=== PATIENT | female | born 1965 | race American Indian/Alaskan Native ===

== ENCOUNTER 2016-11-30 11:35 | Emergency (ER) | payer SELFPAY ==
[2016-11-30 12:22] LABS: Hematocrit 34.1 % (30.3-42.9); Hemoglobin 10.4 gm/dl (10.1-14.3); Mean Corpuscular HGB Conc 31 % (30-34); Mean Corpuscular Volume 73 fl (79-97); Platelet Count 280 K/mm3 (140-440); Red Blood Count 4.67 M/mm3 (3.65-5.03); Red Cell Distribution Width 17.1 % (13.2-15.2); White Blood Count 5.7 K/mm3 (4.5-11.0)
[2016-11-30 12:29] LABS: Mean Corpuscular Hemoglobin 22 pg (28-32)
[2016-11-30 12:54] LABS: Bilirubin,Urine NEG (Negative); Blood,Urine MOD (Negative); Ketones,Urine NEG (Negative); Leukocyte Esterase,Urine NEG (Negative); Nitrite,Urine NEG (Negative); Protein,Urine <15 mg/dL mg/dL (Negative); Urobilinogen,Urine < 2.0 mg/dL (<2.0)
[2016-11-30 15:17] LABS: Anion Gap 18 mmol/L; BUN/Creatinine Ratio 21.66; Blood Urea Nitrogen 13 mg/dL (7-17); Calcium 8.5 mg/dL (8.4-10.2); Carbon Dioxide 19 mmol/L (22-30); Glucose 121 mg/dL (65-100); Potassium 3.4 mmol/L (3.6-5.0); Sodium 133 mmol/L (137-145)
[2016-11-30] MEDS ORDERED: TORADOL IV ONE (18:27)
[2016-11-30] MEDS ORDERED: CATAPRES PO ONE (18:27)
[2016-11-30] MEDS ORDERED: NACL 0.9% 1000 ML 1,000 ML IV ONE (18:27)
[2016-11-30] MEDS ORDERED: K-DUR PO ONE (18:27)
--- NOTE | 2016-11-30 19:28 | Cat Scan Report ---
FINAL REPORT EXAM: CT HEAD/BRAIN WO CON HISTORY: right sided oakes TECHNIQUE: CT imaging acquired through the head without intravenous contrast. Transaxial reformations are provided. PRIORS: None. FINDINGS: The ventricles, cisterns and sulci are normal. No intraparenchymal or extra-axial mass, hemorrhage, or mass effect. Baker and white-matter differentiation is normal. Normal spherical shape of the globes. Paranasal sinuses and mastoid air cells are clear. No skull or facial fracture visualized. IMPRESSION: No acute intracranial abnormality.
--- NOTE | 2016-11-30 19:38 | Emergency Department Report ---
ED General Adult HPI - General Chief complaint: Vaginal Bleeding Stated complaint: HEADACHE/VAGINAL BLEEDING Time Seen by Provider: 11/30/16 18:12 Source: patient Mode of arrival: Ambulatory Limitations: No Limitations - History of Present Illness Initial comments: 51-year-old female with a past medical history of hypertension, rheumatoid arthritis , and Raynauds presents to the hospital complains of vaginal bleeding and headache. Patient has had postmenopausal vaginal spotting times one week. Patient complains of bloating to her abdomen and decreased bowel movements. She did have a small hard stool today but did not have a bowel movement 2-3 days prior to that. She also complains of feeling full easily with eating. She denies pain to abdomen. Patient does complain of 8/10 right-sided headache that has been constant the last several days. Some mild improvement with Tylenol. Patient does have a history of migraines but states that her migraines typically involve her whole head, including neck pain, and are more severe. Patient denies nausea, vomiting, blurred vision, focal weakness, focal numbness, lightheadedness, or dizziness. Patient presents with elevated blood pressure despite being compliant with her carvedilol and lisinopril. PMD: Dr. Auguste - Related Data Home Medications Medication Instructions Recorded Confirmed Last Taken Carvedilol [Coreg] 25 mg PO BID 11/30/16 11/30/16 11/30/16 Edoxaban Tosylate [Savaysa] 60 mg PO QDAY 11/30/16 11/30/16 11/30/16 Furosemide [Lasix TAB] 40 mg PO QDAY 11/30/16 11/30/16 11/30/16 Hydroxychloroquine [Plaquenil] 200 mg PO QDAY 11/30/16 11/30/16 11/30/16 Lisinopril [Zestril] 5 mg PO QDAY 11/30/16 11/30/16 11/30/16 NIFEdipine [Nifedipine ER] 60 mg PO QDAY 11/30/16 11/30/16 11/30/16 Prednisone [predniSONE (Larry) ER 5 mg PO BID 11/30/16 11/30/16 11/30/16 TAB] sulfaSALAzine [Azulfidine] 500 mg PO Q12HR 11/30/16 11/30/16 11/30/16 Previous Rx's Medication Instructions Recorded Last Taken Type Butalb/Acetaminophen/Caffeine 1 cap PO Q6HR PRN #30 cap 11/30/16 Unknown Rx [Fioricet 50-300-40 mg CAP] Lisinopril [Zestril TAB] 20 mg PO QDAY #30 tablet 11/30/16 Unknown Rx Allergies Allergy/AdvReac Type Severity Reaction Status Date / Time No Known Allergies Allergy Verified 04/13/15 10:01 ED Review of Systems ROS: Stated complaint: HEADACHE/VAGINAL BLEEDING Other details as noted in HPI Comment: All other systems reviewed and negative Other: Constitutional: No fevers chills Eyes: No eye pain visual changes ENT: No ear pain or throat pain Neck: Denies pain Respiratory: Denies cough wheezing shortness of breath Cardiovascular: Denies chest pain, palpitations, syncope Endocrine: Denies excessive sweating, intolerance to cold, increased thirst GI: Denies abdominal pain, nausea, vomiting, diarrhea, constipation, melena hematochezia : Denies dysuria Musculoskeletal: Denies back pain Skin: Denies rash, lesions, erythema Neurologic: Denies numbness, weakness Psychiatric: Denies suicidal ideation, hallucinations Hematological/lymphatic: Denies easy bruising, lymphadenopathy ED Past Medical Hx - Past Medical History Hx Hypertension: Yes Hx Arthritis: Yes (RA) Additional medical history: varicose veins, Raynauds - Surgical History Additional Surgical History: tubal litigation - Social History Smoking Status: Never Smoker Substance Use Type: Alcohol - Medications Home Medications: Home Medications Medication Instructions Recorded Confirmed Last Taken Type Butalb/Acetaminophen/Caffeine 1 cap PO Q6HR PRN #30 cap 11/30/16 Unknown Rx [Fioricet 50-300-40 mg CAP] Carvedilol [Coreg] 25 mg PO BID 11/30/16 11/30/16 11/30/16 History Edoxaban Tosylate [Savaysa] 60 mg PO QDAY 11/30/16 11/30/16 11/30/16 History Furosemide [Lasix TAB] 40 mg PO QDAY 11/30/16 11/30/16 11/30/16 History Hydroxychloroquine [Plaquenil] 200 mg PO QDAY 11/30/16 11/30/16 11/30/16 History Lisinopril [Zestril TAB] 20 mg PO QDAY #30 tablet 11/30/16 Unknown Rx Lisinopril [Zestril] 5 mg PO QDAY 11/30/16 11/30/16 11/30/16 History NIFEdipine [Nifedipine ER] 60 mg PO QDAY 11/30/16 11/30/16 11/30/16 History Prednisone [predniSONE (Larry) ER 5 mg PO BID 11/30/16 11/30/16 11/30/16 History TAB] sulfaSALAzine [Azulfidine] 500 mg PO Q12HR 11/30/16 11/30/16 11/30/16 History ED Physical Exam - General Limitations: No Limitations - Other Other exam information: General: No limitations, patient is alert in no acute distress Head exam: Atraumatic, normocephalic Eyes exam: Normal appearance, pupils equal reactive to light, extraocular movements intact ENT: Moist mucous membrane, normal oropharynx and no sinus tenderness Neck exam: Normal inspection, full range of motion, no meningismus nontender Respiratory exam: Clear to auscultation bilateral, no wheezes, rales, crackles Cardiovascular: Normal rate and rhythm, normal heart sounds Abdomen: Soft, nondistended, and nontender, with normal bowel sounds, no rebound, or guarding : Scant blood in vaginal vault no CMT or adnexal tenderness Extremity: Full range of motion normal inspection no deformity Back: Normal Inspection, full range of motion, no tenderness Neurologic: Alert, oriented x3, cranial nerves intact, no motor or sensory deficit Psychiatric: normal affect, normal mood Skin: Warm, dry, intact ED Course Vital Signs 11/30/16 11/30/16 11/30/16 11:45 18:05 18:11 Temperature 97.7 F Pulse Rate 74 66 Respiratory 20 22 Rate Blood Pressure 181/102 204/105 Blood Pressure [Left] O2 Sat by Pulse 100 67 L Oximetry 11/30/16 11/30/16 11/30/16 18:16 18:21 18:31 Temperature Pulse Rate 68 75 Respiratory 18 22 10 L Rate Blood Pressure 200/106 194/98 Blood Pressure [Left] O2 Sat by Pulse 98 Oximetry 11/30/16 11/30/16 11/30/16 18:41 18:51 19:15 Temperature 97.4 F L Pulse Rate 75 72 Respiratory 21 21 Rate Blood Pressure 194/98 194/98 Blood Pressure [Left] O2 Sat by Pulse Oximetry 11/30/16 11/30/16 11/30/16 19:55 20:00 20:01 Temperature Pulse Rate 61 Respiratory Rate Blood Pressure 208/100 206/104 Blood Pressure [Left] O2 Sat by Pulse 82 L 19 L Oximetry 11/30/16 11/30/16 11/30/16 21:00 21:40 22:08 Temperature Pulse Rate 66 75 Respiratory Rate Blood Pressure 204/108 198/107 Blood Pressure 197/93 [Left] O2 Sat by Pulse Oximetry 11/30/16 11/30/16 22:11 22:35 Temperature Pulse Rate 75 72 Respiratory Rate Blood Pressure 197/93 Blood Pressure 157/85 [Left] O2 Sat by Pulse Oximetry - Reevaluation(s) Reevaluation #1: 11/30/16 22:35 ED stay pain improved with toward all. Patient required clonidine 0.2 followed by hydralazine 10 mg IV, then repeat hydralazine 10 for adequate blood pressure reduction which is currently 157/85. ED Medical Decision Making - Lab Data Result diagrams: 11/30/16 12:03 11/30/16 12:03 Lab Results 11/30/16 11/30/16 11/30/16 Range/Units 12:03 12:03 12:23 WBC 5.7 (4.5-11.0) K/mm3 RBC 4.67 (3.65-5.03) M/mm3 Hgb 10.4 (10.1-14.3) gm/dl Hct 34.1 (30.3-42.9) % MCV 73 L (79-97) fl MCH 22 L (28-32) pg MCHC 31 (30-34) % RDW 17.1 H (13.2-15.2) % Plt Count 280 (140-440) K/mm3 Sodium 133 L (137-145) mmol/L Potassium 3.4 L (3.6-5.0) mmol/L Chloride 99.0 (98-107) mmol/L Carbon Dioxide 19 L (22-30) mmol/L Anion Gap 18 mmol/L BUN 13 (7-17) mg/dL Creatinine 0.6 L (0.7-1.2) mg/dL Estimated GFR > 60 ml/min BUN/Creatinine Ratio 21.66 % Glucose 121 H (65-100) mg/dL Calcium 8.5 (8.4-10.2) mg/dL Urine Color Yellow (Yellow) Urine Turbidity Clear (Clear) Urine pH 6.0 (5.0-7.0) Ur Specific [place] 1.013 (1.003-1.030) Urine Protein <15 mg/dl (Negative) mg/dL Urine Glucose (UA) Neg (Negative) mg/dL Urine Ketones Neg (Negative) mg/dL Urine Blood Mod (Negative) Urine Nitrite Neg (Negative) Urine Bilirubin Neg (Negative) Urine Urobilinogen < 2.0 (<2.0) mg/dL Ur Leukocyte Esterase Neg (Negative) Urine WBC (Auto) 1.0 (0.0-6.0) /HPF Urine RBC (Auto) 4.0 (0.0-6.0) /HPF U Epithel Cells (Auto) 1.0 (0-13.0) /HPF Positive clue cells on wet prep >20, neg trich, yeast GC chlamydia pending - Radiology Data Radiology results: report reviewed (ct head: naf) Transvaginal/pelvic ultrasound: Endometrium 8 mm thick. 2 uterine fibroids approximately 15 mm - Medical Decision Making Patient received by mouth potassium for mild hypokalemia. Patient also has mild hyponatremia as well. Patient presents with elevated blood pressure despite medication compliance was could be either due to inadequate medication dosing or acute pain secondary to headache. Patient is currently on lisinopril 5 mg and carvedilol. Lisinopril will be increased to 20 mg daily. Patient instructed to monitor her blood pressure at home and follow-up very closely with primary care doctor for repeat electrolytes evaluation. - Differential Diagnosis migraine, hypertensive headache, hypertensive emergency, CA, postmenopausa Critical Care Time: No Critical care attestation.: If time is entered above; I have spent that time in minutes in the direct care of this critically ill patient, excluding procedure time. ED Disposition Clinical Impression: Uncontrolled hypertension, Postmenopausal bleeding, Uterine fibroid, Headache, Hypokalemia, Hyponatremia Disposition: DISCHARGED TO HOME OR SELFCARE Is pt being admited?: No Condition: Stable Instructions: Hypertension (ED), Acute Headache (ED), Hypokalemia (ED) Additional Instructions: Take the medication as prescribed. I have increased her or lisinopril to 20 mg once a day given how high her blood pressure was in the ER. Continue to monitor your blood pressure at home. Follow up very closely with your doctor within 2-3 days for repeat evaluation. Both your sodium and potassium also slightly low in the ER and both were supplemented. Take the Fioricet as needed for headache. It is very important that you follow with your [facility] doctor for further workup and evaluation of postmenopausal bleeding. Please return to the hospita if you are bleeding and using more than 1 vaginal pad per hour. Prescriptions: Butalb/Acetaminophen/Caffeine [Fioricet 50-300-40 mg CAP] 1 cap PO Q6HR PRN #30 cap PRN Reason: Headache Lisinopril [Zestril TAB] 20 mg PO QDAY #30 tablet Referrals: NINA AUGUSTE MD [Primary Care Provider] - 3-5 Days Time of Disposition: 22:43
--- NOTE | 2016-11-30 20:17 | Ultrasound Report ---
FINAL REPORT EXAM: US PELVIC COMPLETE HISTORY: post menopausal vag spotting COMPARISONS: None. FINDINGS: Transabdominal grayscale and color Doppler ultrasound evaluation of the pelvis Anteverted uterus is overall heterogeneous with 2 likely transmural fibroids measuring up to 11 millimeters, which are better demonstrated on transvaginal examination. The endometrium is not well visualized on transabdominal scanning. Left ovary is not visualized. The right ovary measures 4.3 x 3.4 x 2.9 cm and contains a 2.9 cm anechoic simple cyst. IMPRESSION: The endometrium is not well visualized on transabdominal scanning. Please see transvaginal ultrasound of the same date.
--- NOTE | 2016-11-30 20:19 | Ultrasound Report ---
FINAL REPORT EXAM: US TRANSVAGINAL HISTORY: post menopausal vag spotting COMPARISONS: None. FINDINGS: Transvaginal grayscale and color Doppler ultrasound evaluation of the pelvis The uterus is anteverted and measures 7.9 x 4.4 x 5.1 cm. Mild heterogeneity of the uterine myometrium with likely 2 transmural fibroids measuring up to 15 millimeters in greatest dimension. No endometrial distortion. The endometrium is mildly heterogeneously thickened measuring up to approximately 8 millimeters. Trace free fluid in the pelvis. The left ovary is not well visualized. The right ovary measures 4.3 x 3.4 x 2.9 cm and contains a 2.9 centimeter simple appearing cyst. IMPRESSION: Endometrium measures up to 8 millimeters in thickness. Consider sonographic follow-up and/or tissue sampling in the setting of reported postmenopausal vaginal bleeding. There are two likely transmural fibroids measuring up to 15 millimeters. No endometrial distortion.
[2016-11-30] MEDS ORDERED: APRESOLINE IV ONE ×2 (21:21→22:10)
[2016-11-30 22:36] VITALS: BP 157/85
== END 2016-12-01 00:01 | disposition home or self-care (01) ==
LOC: ED 11:35
DX: I10 Essential (primary) hypertension (principal); N95.0 Postmenopausal bleeding; D25.9 Leiomyoma of uterus, unspecified; R51 Headache; E87.6 Hypokalemia; E87.1 Hypo-osmolality and hyponatremia; M19.90 Unspecified osteoarthritis, unspecified site; Z98.51 Tubal ligation status
CPT/HCPCS: 36415; 70450; 76830; 76856; 80048; 81001; 85027; 87210; 87591; 96361; 96374; 96375; 96376; 99285; J0360; J1885; J7030

== ENCOUNTER 2020-12-03 21:30 | Observation (INO) | payer MEDICARE, OTHER ==
[2020-12-03] MEDS ORDERED: ASPIRIN 81 MG TAB CHEW PO ONE (21:43)
--- NOTE | 2020-12-03 21:45 | Event Note ---
ED Screening Note Date of service: 12/03/20 Time: 21:44 ED Screening Note: 55-year-old female patient with history of congestive heart failure, hypertension, and rheumatoid arthritis presents to the emergency department with complaints of chest pain with associated dyspnea starting approximately 2 hours ago. Pain is not related to exertion. Vital signs stable in triage. General: Awake, appropriately interactive, no acute distress. Neck: Supple. Full range of motion intact. Cardiovascular: Regular rate and rhythm. Normal peripheral perfusion. No pretibial pitting edema. Pulmonary: Clear to auscultation bilaterally. No respiratory distress. Patient is speaking normally without use of accessory muscles. Skin: No apparent rashes or lesions. Neurological: No facial asymmetry. Speech is clear. Follows commands. Patient is alert and oriented. Musculoskeletal: Moves all four extremities spontaneously with normal range of motion. Psych: Cooperative. Appropriate mood and affect. I have greeted and performed a focused rapid initial assessment of this patient. A comprehensive ED assessment and evaluation of the patient, analysis of all test results, and completion of the medical decision-making process will be conducted by additional ED providers. This initial assessment/diagnostic orders/clinical plan/treatment(s) is/are subject to change based on patients health status, clinical progression and re-assessment. Further treatment and workup at subsequent clinical provider's discretion. Patient/guardian urged not to elope from the ED as their condition may be serious if not clinically assessed and managed.
[2020-12-03 22:16] LABS: Basophils % (Auto) 0.6 % (0.0-1.8); Eosinophils # (Auto) 0.1 K/mm3 (0.0-0.4); Eosinophils % (Auto) 0.9 % (0.0-4.3); Hematocrit 35.2 % (30.3-42.9); Hemoglobin 10.7 gm/dl (10.1-14.3); Lymphocytes # (Auto) 1.5 K/mm3 (1.2-5.4); Lymphocytes % (Auto) 25.9 % (13.4-35.0); Mean Corpuscular HGB Conc 31 % (30-34); Monocytes # (Auto) 0.9 K/mm3 (0.0-0.8); Monocytes % (Auto) 15.9 % (0.0-7.3); Platelet Count 266 K/mm3 (140-440); Red Blood Count 5.18 M/mm3 (3.65-5.03); Red Cell Distribution Width 16.7 % (13.2-15.2)
[2020-12-03 22:24] LABS: Mean Corpuscular Volume 68 fl (79-97)
[2020-12-03 22:26] LABS: INR 1.97 (0.87-1.13)
[2020-12-03 22:27] LABS: Partial Thromboplastin Time 35.8 Sec. (24.2-36.6)
[2020-12-03 22:33] LABS: Alanine Aminotransferase 14 units/L (7-56); Albumin 3.8 g/dL (3.9-5); BUN/Creatinine Ratio 23; Blood Urea Nitrogen 18 mg/dL (7-17); Calcium 9.2 mg/dL (8.4-10.2); Hemolysis Index 19
[2020-12-03 22:50] LABS: Chol/HDL Ratio 3.68 %; HDL Cholesterol 45 mg/dL (40-59); LDL Cholesterol,Direct 108 mg/dL (50-130)
[2020-12-03] MEDS ORDERED: MORPHINE 4 MG/1 ML INJ IV ONE (23:03)
--- NOTE | 2020-12-03 23:03 | Emergency Department Report ---
ED Chest Pain HPI - General Chief Complaint: Chest Pain Stated Complaint: CHEST PAIN Time Seen by Provider: 12/03/20 22:44 Source: patient Mode of arrival: Ambulatory Limitations: No Limitations - History of Present Illness Initial Comments: This is a 55-year-old -[place] female who presents to the emergency department with a complaint of some midsternal to left-sided chest pain that started about 1.5 hours prior to presentation while the patient was sitting watching television. Currently she says the pain is a 6 out of 10 in intensity and feels like a tightness. There is some radiation down the left arm. The pain worsens with exertion and improves with rest. She has not taken anything for symptoms prior to presentation. She denies any tobacco or illicit drug use. She has a past medical history of rheumatoid arthritis, CHF, hypertension, Raynaud's, paroxysmal atrial fibrillation on anticoagulation (xarelto). Her primary care physician is a Dr. 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 No recent travel or sick contacts at home. She denies any fever, shortness of breath, nausea, vomiting, diaphoresis, cough, back pain, lower extremity swelling. - Related Data Home Medications Medication Instructions Recorded Confirmed Last Taken Edoxaban Tosylate [Savaysa] 60 mg PO QDAY 11/30/16 11/30/16 11/30/16 Furosemide [Lasix TAB] 40 mg PO QDAY 11/30/16 11/30/16 11/30/16 Hydroxychloroquine [Plaquenil] 200 mg PO QDAY 11/30/16 11/30/16 11/30/16 NIFEdipine [Nifedipine ER] 60 mg PO QDAY 11/30/16 11/30/16 11/30/16 Prednisone [predniSONE (Larry) ER 5 mg PO BID 11/30/16 11/30/16 11/30/16 TAB] carvediloL [Coreg] 25 mg PO BID 11/30/16 11/30/16 11/30/16 lisinopriL [Zestril] 5 mg PO QDAY 11/30/16 11/30/16 11/30/16 sulfaSALAzine [Azulfidine] 500 mg PO Q12HR 11/30/16 11/30/16 11/30/16 Previous Rx's Medication Instructions Recorded Last Taken Type Butalb/Acetaminophen/Caffeine 1 cap PO Q6HR PRN #30 cap 11/30/16 Unknown Rx [Fioricet 50-300-40 mg CAP] lisinopriL [Zestril TAB] 20 mg PO QDAY #30 tablet 11/30/16 Unknown Rx metroNIDAZOLE [Flagyl] 500 mg PO Q12HR #14 tab 11/30/16 Unknown Rx Allergies Allergy/AdvReac Type Severity Reaction Status Date / Time No Known Allergies Allergy Verified 04/13/15 10:01 Heart Score - HEART Score History: Moderately suspicious EKG: Normal Age: 45-65 Risk factors: 1-2 risk factors Troponin: > 3x normal limit HEART Score: 5 - EKG Read Time Time EKG Completed: 21:49 EKG Read Time: 21:52 ED Review of Systems ROS: Stated complaint: CHEST PAIN Other details as noted in HPI ED Past Medical Hx - Past Medical History Previous Medical History?: Yes Hx Hypertension: Yes Hx Congestive Heart Failure: Yes Hx Arthritis: Yes (RA) Additional medical history: varicose veins, Raynauds - Surgical History Past Surgical History?: Yes Additional Surgical History: tubal litigation - Social History Smoking Status: Never Smoker - Medications Home Medications: Home Medications Medication Instructions Recorded Confirmed Last Taken Type Butalb/Acetaminophen/Caffeine 1 cap PO Q6HR PRN #30 cap 11/30/16 Unknown Rx [Fioricet 50-300-40 mg CAP] Edoxaban Tosylate [Savaysa] 60 mg PO QDAY 11/30/16 11/30/16 11/30/16 History Furosemide [Lasix TAB] 40 mg PO QDAY 11/30/16 11/30/16 11/30/16 History Hydroxychloroquine [Plaquenil] 200 mg PO QDAY 11/30/16 11/30/16 11/30/16 History NIFEdipine [Nifedipine ER] 60 mg PO QDAY 11/30/16 11/30/16 11/30/16 History Prednisone [predniSONE (Larry) ER 5 mg PO BID 11/30/16 11/30/16 11/30/16 History TAB] carvediloL [Coreg] 25 mg PO BID 11/30/16 11/30/16 11/30/16 History lisinopriL [Zestril TAB] 20 mg PO QDAY #30 tablet 11/30/16 Unknown Rx lisinopriL [Zestril] 5 mg PO QDAY 11/30/16 11/30/16 11/30/16 History metroNIDAZOLE [Flagyl] 500 mg PO Q12HR #14 tab 11/30/16 Unknown Rx sulfaSALAzine [Azulfidine] 500 mg PO Q12HR 11/30/16 11/30/16 11/30/16 History ED Physical Exam - General Limitations: No Limitations - Other Other exam information: GENERAL: The patient is well-developed well-nourished. HENT: Normocephalic. Atraumatic. Patient has moist mucous membranes. EYES: Extraocular motions are intact. NECK: Supple. Trachea is midline. CHEST/LUNGS: Clear to auscultation. There is no respiratory distress noted. HEART/CARDIOVASCULAR: Regular. There is no tachycardia. There is no murmur. ABDOMEN: Abdomen is soft, nontender. Patient has normal bowel sounds. SKIN: Skin is warm and dry. NEURO: The patient is awake, alert, and oriented. The patient is cooperative. The patient has no focal neurologic deficits. Normal speech. MUSCULOSKELETAL: There is no tenderness or deformity. There is no limitation range of motion. ED Course Vital Signs 12/03/20 12/03/20 12/03/20 21:45 21:51 23:16 Temperature 98.7 F Pulse Rate 75 73 Respiratory 20 14 Rate Blood Pressure 142/93 158/75 O2 Sat by Pulse 98 Oximetry CYNTHIA score - Cynthia Score Age > 65: (0) No Aspirin use within the Past 7 Days: (0) No 3 or more CAD Risk Factors: (0) No 2 or more Angina events in past 24 hrs: (1) Yes Known CAD with more than 50% Stenosis: (0) No Elevated Cardiac Markers: (1) Yes ST Deviation Greater than 0.5mm: (0) No CYNTHIA Score: 2 ED Medical Decision Making - Lab Data Result diagrams: 12/03/20 21:51 12/03/20 21:51 Lab Results 12/03/20 12/03/20 12/03/20 Range/Units 21:51 21:51 21:51 WBC 5.9 (4.5-11.0) K/mm3 RBC 5.18 H (3.65-5.03) M/mm3 Hgb 10.7 (10.1-14.3) gm/dl Hct 35.2 (30.3-42.9) % MCV 68 L (79-97) fl MCH 21 L (28-32) pg MCHC 31 (30-34) % RDW 16.7 H (13.2-15.2) % Plt Count 266 (140-440) K/mm3 Lymph % (Auto) 25.9 (13.4-35.0) % [place] % (Auto) 15.9 H (0.0-7.3) % Eos % (Auto) 0.9 (0.0-4.3) % Baso % (Auto) 0.6 (0.0-1.8) % Lymph # (Auto) 1.5 (1.2-5.4) K/mm3 [place] # (Auto) 0.9 H (0.0-0.8) K/mm3 Eos # (Auto) 0.1 (0.0-0.4) K/mm3 Baso # (Auto) 0.0 (0.0-0.1) K/mm3 Seg Neutrophils % 56.7 (40.0-70.0) % Seg Neutrophils # 3.4 (1.8-7.7) K/mm3 PT 22.4 H (12.2-14.9) Sec. INR 1.97 H (0.87-1.13) APTT 35.8 (24.2-36.6) Sec. Sodium 133 L (137-145) mmol/L Potassium 3.9 (3.6-5.0) mmol/L Chloride 95.8 L (98-107) mmol/L Carbon Dioxide 25 (22-30) mmol/L Anion Gap 16 mmol/L BUN 18 H (7-17) mg/dL Creatinine 0.8 (0.6-1.2) mg/dL Estimated GFR > 60 ml/min BUN/Creatinine Ratio 23 % Glucose 88 (65-100) mg/dL Calcium 9.2 (8.4-10.2) mg/dL Magnesium 2.00 (1.7-2.3) mg/dL Total Bilirubin 0.30 (0.1-1.2) mg/dL AST 41 H (5-40) units/L ALT 14 (7-56) units/L Alkaline Phosphatase 68 (35-129) units/L Troponin T 0.105 H* (0.00-0.029) ng/mL NT-Pro-B Natriuret Pep 398.7 (0-900) pg/mL Total Protein 10.1 H (6.3-8.2) g/dL Albumin 3.8 L (3.9-5) g/dL Albumin/Globulin Ratio 0.6 % Triglycerides 102 (2-149) mg/dL Cholesterol 166 (50-199) mg/dL LDL Cholesterol Direct 108 (50-130) mg/dL HDL Cholesterol 45 (40-59) mg/dL Cholesterol/HDL Ratio 3.68 % - EKG Data -: EKG Interpreted by Me EKG shows normal: sinus rhythm, axis, intervals, QRS complexes (Q waves to the septal leads, LVH), ST-T waves Rate: normal - EKG Data When compared to previous EKG there are: no significant change Interpretation: unchanged when compared t (04/26/15) - Radiology Data Radiology results: image reviewed interpreted by me: Chest x-ray shows cardiomegaly. There is no pleural effusions, pneumothorax, obvious pneumonia. - Medical Decision Making This patient presents with midsternal to left-sided acute chest pain that started about 1.5 hours prior to presentation. EKG does not have any morphology consistent with ST elevation myocardial infarction. Chest x-ray shows cardiomegaly, but otherwise no pneumonia, pleural effusions, pneumothorax, or any other acute process. The patient's first troponin came back elevated at 0.105 concerning for an NSTEMI. She has been given a full dose aspirin. Her INR is currently about 2 and therefore the patient has not been started on heparin. She deferred IV analgesia at this time. She will be admitted to the hospital for further evaluation and treatment was accepted for admission by the hospitalist, Dr. Sandhu. Critical Care Time: Yes Critical care time in (mins) excluding proc time.: 35 Critical care attestation.: If time is entered above; I have spent that time in minutes in the direct care of this critically ill patient, excluding procedure time. Due to the immediate potential for life-threatening deterioration due to underlying cardiac condition, I spent 35 minutes of critical care time with the patient. Critical Care Time: 35 minutes ED Disposition Clinical Impression: NSTEMI (non-ST elevated myocardial infarction), Acute chest pain Hypertension Qualifiers: Hypertension type: essential hypertension Qualified Code(s): I10 - Essential (primary) hypertension Disposition: DC-09 OP ADMIT IP TO THIS HOSP Is pt being admited?: Yes Condition: Serious Instructions: Chest Pain (ED), Hypertension (ED) Time of Disposition: 23:59
--- NOTE | 2020-12-03 23:06 | XRay Report ---
CHEST 2 VIEWS, 12/03/2020 10:18 PM INDICATION: Chest pain. Shortness of breath. COMPARISON: None FINDINGS: Support devices: None. Heart: There is moderate enlargement of the cardiac silhouette. Lungs/pleura: The lungs are clear of focal airspace disease or significant pleural effusion. Additional findings: There are moderate confluent bony degenerative changes of the thoracic spine. IMPRESSION: 1. Moderate enlargement of the cardiac silhouette. Signer Name: Felicia Callaway MD Signed: 12/03/2020 11:01 PM Workstation Name: [id number]
[2020-12-03] MEDS ORDERED: traMADol 50 MG TAB PO PRN (23:31)
[2020-12-03] MEDS ORDERED: ACETAMINOPHEN 325 MG TAB PO PRN ×2 (23:31)
[2020-12-03] MEDS ORDERED: MORPHINE 2 MG/1 ML INJ IV PRN (23:31)
[2020-12-03] MEDS ORDERED: NITROGLYCERIN 0.4 MG TAB SUBL SL PRN (23:31)
[2020-12-03] MEDS ORDERED: MAGNESIUM HYDROXIDE (MOM) ORAL LIQD UDC PO PRN (23:31)
[2020-12-03] MEDS ORDERED: ONDANSETRON 4 MG/2 ML INJ IV PRN (23:31)
--- NOTE | 2020-12-03 23:55 | History and Physical Report ---
History of Present Illness Date of examination: 12/03/20 Date of admission: 12/03/2020 Chief complaint: Chest Pain History of present illness: 55-year-old -[place] female with known history of hypertension, rheumatoid arthritis and history of CHF presenting in the emergency room today complaining of chest pain. Chest pain is said to be substernal and radiating towards the left side of her chest and the left upper extremity. She had some tingling sensation in the left upper extremity. Pain is said to be about 6/10 in severity. Pain is worse on exertion and improves upon resting. Patient denies any fever or chills, denies any nausea vomiting, denies any shortness of breath, no headache or dizziness, no diaphoresis. Patient denies any sick contacts and no recent travel, denies any contact with anyone with COVID-19. Patient follows up with a record center coordinator Dr. Stroud with the [facility]. She indicates that she had a recent stress test about 2 months ago which was within normal limits. She also had a cardiac cath approximately 2 y ears ago which was also within normal limits. Review of patient's record indicates she was here sometime in 2013 and work-up at that time including echo and cardiac cath were also unremarkable. Work-up in the emergency room today reveals elevated troponin. EKG did not show any acute findings. Patient is being admitted for chest pain to rule out acute myocardial infarction. Past History Past Medical History: arthritis (Rheumatoid Arthritis), heart failure, hypertension, other (Raynaud's disease) Past Surgical History: Other (Tubal ligation,) Social history: no significant social history Family history: no significant family history Medications and Allergies Allergies Allergy/AdvReac Type Severity Reaction Status Date / Time No Known Allergies Allergy Verified 04/13/15 10:01 Home Medications Medication Instructions Recorded Confirmed Last Taken Type Butalb/Acetaminophen/Caffeine 1 cap PO Q6HR PRN #30 cap 11/30/16 Unknown Rx [Fioricet 50-300-40 mg CAP] Edoxaban Tosylate [Savaysa] 60 mg PO QDAY 11/30/16 11/30/16 11/30/16 History Furosemide [Lasix TAB] 40 mg PO QDAY 11/30/16 11/30/16 11/30/16 History Hydroxychloroquine [Plaquenil] 200 mg PO QDAY 11/30/16 11/30/16 11/30/16 History NIFEdipine [Nifedipine ER] 60 mg PO QDAY 11/30/16 11/30/16 11/30/16 History Prednisone [predniSONE (Larry) ER 5 mg PO BID 11/30/16 11/30/16 11/30/16 History TAB] carvediloL [Coreg] 25 mg PO BID 11/30/16 11/30/16 11/30/16 History lisinopriL [Zestril TAB] 20 mg PO QDAY #30 tablet 11/30/16 Unknown Rx lisinopriL [Zestril] 5 mg PO QDAY 11/30/16 11/30/16 11/30/16 History metroNIDAZOLE [Flagyl] 500 mg PO Q12HR #14 tab 11/30/16 Unknown Rx sulfaSALAzine [Azulfidine] 500 mg PO Q12HR 11/30/16 11/30/16 11/30/16 History Active Meds: Active Medications Acetaminophen (Acetaminophen 325 Mg Tab) 650 mg PO Q4H PRN PRN Reason: Pain MILD(1-3)/Fever >100.5/LOGAN Acetaminophen (Acetaminophen 325 Mg Tab) 650 mg PO Q6H PRN PRN Reason: Pain, Mild (1-3) Aspirin (Aspirin Ec 325 Mg Tab) 325 mg PO QDAY RADHA Magnesium Hydroxide (Magnesium Hydroxide (Mom) Oral Liqd Udc) 30 ml PO Q4H PRN PRN Reason: Constipation Morphine Sulfate (Morphine 4 Mg/1 Ml Inj) 2 mg IV Q5MIN PRN PRN Reason: Chest Pain Nitroglycerin (Nitroglycerin 0.4 Mg Tab Subl) 0.4 mg SL Q5M PRN PRN Reason: Chest Pain Ondansetron HCl (Ondansetron 4 Mg/2 Ml Inj) 4 mg IV Q8H PRN PRN Reason: Nausea And Vomiting Sodium Chloride (Sodium Chloride 0.9% 10 Ml Flush Syringe) 10 ml IV BID RADHA Sodium Chloride (Sodium Chloride 0.9% 10 Ml Flush Syringe) 10 ml IV PRN PRN PRN Reason: LINE FLUSH Sodium Chloride (Sodium Chloride 0.9% 10 Ml Flush Syringe) 10 ml IV PRN PRN PRN Reason: LINE FLUSH Tramadol HCl (Tramadol 50 Mg Tab) 50 mg PO Q6H PRN PRN Reason: Pain, Moderate (4-6) Review of Systems Constitutional: no fever, no chills Ears, nose, mouth and throat: no nasal congestion, no sore throat Cardiovascular: chest pain, no palpitations Respiratory: no cough, no shortness of breath Gastrointestinal: no abdominal pain, no nausea, no vomiting, no diarrhea Genitourinary Female: no flank pain, no dysuria, no hematuria Musculoskeletal: no neck pain, no low back pain Integumentary: no rash, no pruritis Neurological: no headaches, no confusion Psychiatric: no anxiety, no confusion Endocrine: no polyphagia, no polydipsia, no polyuria, no nocturia Exam - Constitutional Vitals: Temp Pulse Resp BP Pulse Ox 98.7 F 73 14 158/75 98 12/03/20 21:51 12/03/20 23:16 12/03/20 23:16 12/03/20 23:16 12/03/20 21:45 General appearance: Present: no acute distress, well-nourished - EENT Eyes: Present: PERRL, EOM intact. Absent: scleral icterus ENT: hearing intact, clear oral mucosa, dentition normal - Neck Neck: Present: supple, normal ROM - Respiratory Respiratory effort: normal Respiratory: bilateral: CTA - Cardiovascular Rhythm: regular Heart Sounds: Present: S1 & S2. Absent: gallop, systolic murmur, diastolic murmur, rub, click - Extremities Extremities: no ischemia, pulses intact, pulses symmetrical, No edema, Full ROM Peripheral Pulses: within normal limits - Abdominal General gastrointestinal: Present: soft, non-tender, non-distended, normal bowel sounds. Absent: mass - Integumentary Integumentary: Present: clear, warm, dry. Absent: rash - Musculoskeletal Musculoskeletal: strength equal bilaterally - Psychiatric Psychiatric: appropriate mood/affect, intact judgment & insight, memory intact, cooperative - Neurologic Neurologic: CNII-XII intact, no focal deficits, moves all extremities HEART Score - HEART Score History: Moderately suspicious EKG: Normal Age: 45-65 Risk factors: 1-2 risk factors Troponin: Troponin T 0.105 ng/mL (0.00-0.029) H* 12/03/20 21:51 Troponin: > 3x normal limit HEART Score: 5 Results - Labs CBC & Chem 7: 12/03/20 21:51 12/03/20 21:51 Labs: Abnormal lab results 12/03/20 12/03/20 12/03/20 Range/Units 21:51 21:51 21:51 RBC 5.18 H (3.65-5.03) M/mm3 MCV 68 L (79-97) fl MCH 21 L (28-32) pg RDW 16.7 H (13.2-15.2) % [place] % (Auto) 15.9 H (0.0-7.3) % [place] # (Auto) 0.9 H (0.0-0.8) K/mm3 PT 22.4 H (12.2-14.9) Sec. INR 1.97 H (0.87-1.13) Sodium 133 L (137-145) mmol/L Chloride 95.8 L (98-107) mmol/L BUN 18 H (7-17) mg/dL AST 41 H (5-40) units/L Troponin T 0.105 H* (0.00-0.029) ng/mL Total Protein 10.1 H (6.3-8.2) g/dL Albumin 3.8 L (3.9-5) g/dL Assessment and Plan - Patient Problems (1) Chest pain Current Visit: Yes Status: Acute Plan to address problem: Patient admitted and placed on telemetry. We will check serial cardiac enzymes. Patient placed on daily aspirin, sublingual nitroglycerin and IV morphine as needed for chest pain. Recent work-up at her record center coordinator office Dr. Stroud with [facility] has been unremarkable. Patient had a stress test about 2 weeks ago which was within normal limits. We will await further evaluation by cardiology. Attempts will be made in the a.m. to retrieve this patient's medical record from the record center coordinator office. (2) Non-ST elevation AL (NSTEMI) Current Visit: Yes Status: Acute Plan to address problem: We will continue to monitor troponin levels. Patient currently on anticoagulation. Will await cardiology evaluation. (3) DVT prophylaxis Current Visit: Yes Status: Acute Plan to address problem: Patient currently on anticoagulation. (4) Full code status Current Visit: Yes Status: Acute Plan to address problem: Patient is a full code.
[2020-12-04 05:54] LABS: Basophils % (Auto) 0.6 % (0.0-1.8); Eosinophils % (Auto) 0.9 % (0.0-4.3); Hematocrit 31.2 % (30.3-42.9); Hemoglobin 9.6 gm/dl (10.1-14.3); Lymphocytes # (Auto) 1.7 K/mm3 (1.2-5.4); Lymphocytes % (Auto) 29.8 % (13.4-35.0); Mean Corpuscular HGB Conc 31 % (30-34); Monocytes # (Auto) 0.8 K/mm3 (0.0-0.8); Monocytes % (Auto) 14.2 % (0.0-7.3); Platelet Count 257 K/mm3 (140-440); Red Blood Count 4.59 M/mm3 (3.65-5.03); Red Cell Distribution Width 16.4 % (13.2-15.2)
[2020-12-04 05:56] LABS: Mean Corpuscular Volume 68 fl (79-97)
[2020-12-04 05:59] LABS: INR 1.82 (0.87-1.13)
[2020-12-04 06:06] LABS: Blood Urea Nitrogen 16 mg/dL (7-17); Calcium 9.2 mg/dL (8.4-10.2); Hemolysis Index 0
[2020-12-04 06:17] LABS: BUN/Creatinine Ratio 23
[2020-12-04] MEDS ORDERED: EDOXABAN TOSYLATE 60 MG PO SCH (10:00)
[2020-12-04] MEDS ORDERED: LISINOPRIL 5 MG TAB PO SCH (10:00)
--- NOTE | 2020-12-04 10:22 | Electrocardiograph Report ---
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
[2020-12-04] MEDS: FUROSEMIDE 40 MG TAB PO SCH (13:20)
[2020-12-04] MEDS: ASPIRIN EC 325 MG TAB PO SCH (13:20)
[2020-12-04] MEDS: HYDROXYCHLOROQUINE 200 MG TAB PO SCH (13:20)
[2020-12-04] MEDS: sulfaSALAzine 500 MG TAB PO SCH ×2 (13:20→21:58)
[2020-12-04] MEDS: predniSONE 5 MG TAB PO SCH ×2 (13:20→21:47)
[2020-12-04] MEDS: NIFEdipine XL 60 MG TAB PO SCH (13:20)
--- NOTE | 2020-12-04 14:34 | Consultation ---
History of Present Illness Consult date: 12/04/20 Consult reason: chest pain History of present illness: The patient is a 55-year-old woman with a history of a dilated nonischemic ca rdiomyopathy. 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 Stroud at [facility]. She reports that a cardiac catheterization within the past year showed no coronary artery disease, but a dilated nonischemic cardiomyopathy. She cannot recall what her historical ejection fraction measurement. In addition, she has paroxysmal atrial fibrillation, and is on Xarelto for anticoagulation. She cannot recall if her architectural job captain has ever discussed the need for an ICD implant. Her current chest pain is nonexertional, is localized to the left side of the chest, and specifically is worse with inspiration and movement of the thorax. There are some tenderness to palpation over the left chest which reproduces her pain. ECG in the emergency room shows normal sinus rhythm, occasional PAC, no acute ST or T wave changes. Chest x-ray reveals a moderate severity cardiomegaly, but clear lungs. Troponin levels were mildly elevated but flat on 3 measurements, 0.1, 0.09, 0.1. Past History Past Medical History: arthritis (Rheumatoid Arthritis), heart failure, hypertension, other (Raynaud's disease) Past Surgical History: Other (Tubal ligation,) Social history: no significant social history Family history: no significant family history Medications and Allergies Allergies Allergy/AdvReac Type Severity Reaction Status Date / Time No Known Allergies Allergy Verified 04/13/15 10:01 Home Medications Medication Instructions Recorded Confirmed Last Taken Type Butalb/Acetaminophen/Caffeine 1 cap PO Q6HR PRN #30 cap 11/30/16 Unknown Rx [Fioricet 50-300-40 mg CAP] Edoxaban Tosylate [Savaysa] 60 mg PO QDAY 11/30/16 11/30/16 11/30/16 History Furosemide [Lasix TAB] 40 mg PO QDAY 11/30/16 11/30/16 11/30/16 History Hydroxychloroquine [Plaquenil] 200 mg PO QDAY 11/30/16 11/30/16 11/30/16 History NIFEdipine [Nifedipine ER] 60 mg PO QDAY 11/30/16 11/30/16 11/30/16 History Prednisone [predniSONE (Larry) ER 5 mg PO BID 11/30/16 11/30/16 11/30/16 History TAB] carvediloL [Coreg] 25 mg PO BID 11/30/16 11/30/16 11/30/16 History lisinopriL [Zestril TAB] 20 mg PO QDAY #30 tablet 11/30/16 Unknown Rx lisinopriL [Zestril] 5 mg PO QDAY 11/30/16 11/30/16 11/30/16 History metroNIDAZOLE [Flagyl] 500 mg PO Q12HR #14 tab 11/30/16 Unknown Rx sulfaSALAzine [Azulfidine] 500 mg PO Q12HR 11/30/16 11/30/16 11/30/16 History Active Meds: Active Medications Acetaminophen (Acetaminophen 325 Mg Tab) 650 mg PO Q4H PRN PRN Reason: Pain MILD(1-3)/Fever >100.5/LOGAN Aspirin (Aspirin Ec 325 Mg Tab) 325 mg PO QDAY RADHA Furosemide (Furosemide 40 Mg Tab) 40 mg PO QDAY RADHA Hydroxychloroquine Sulfate (Hydroxychloroquine 200 Mg Tab) 200 mg PO QDAY RADHA Lisinopril (Lisinopril 5 Mg Tab) 5 mg PO QDAY RADHA Magnesium Hydroxide (Magnesium Hydroxide (Mom) Oral Liqd Udc) 30 ml PO Q4H PRN PRN Reason: Constipation Miscellaneous Medication (Edoxaban Tosylate [Savaysa]) 60 mg PO QDAY RADHA Morphine Sulfate (Morphine 2 Mg/1 Ml Inj) 2 mg IV Q5MIN PRN PRN Reason: Chest Pain Nifedipine (Nifedipine Xl 60 Mg Tab) 60 mg PO QDAY@0800 [facility] Nitroglycerin (Nitroglycerin 0.4 Mg Tab Subl) 0.4 mg SL Q5M PRN PRN Reason: Chest Pain Last Admin: 12/04/20 08:50 Dose: 0.4 mg Documented by: Ondansetron HCl (Ondansetron 4 Mg/2 Ml Inj) 4 mg IV Q8H PRN PRN Reason: Nausea And Vomiting Prednisone (Prednisone 5 Mg Tab) 5 mg PO BID RADHA Sodium Chloride (Sodium Chloride 0.9% 10 Ml Flush Syringe) 10 ml IV BID RADHA Sodium Chloride (Sodium Chloride 0.9% 10 Ml Flush Syringe) 10 ml IV PRN PRN PRN Reason: LINE FLUSH Sulfasalazine (Sulfasalazine 500 Mg Tab) 500 mg PO Q12HR RADHA Tramadol HCl (Tramadol 50 Mg Tab) 50 mg PO Q6H PRN PRN Reason: Pain, Moderate (4-6) Last Admin: 12/04/20 08:50 Dose: 50 mg Documented by: Review of Systems Cardiovascular: chest pain, no orthopnea, no palpitations, no rapid/irregular heart beat, no edema, no syncope, no lightheadedness, no shortness of breath Physical Examination Vital Signs Pulse Resp BP Pulse Ox 75 20 142/93 98 12/03/20 21:45 12/03/20 21:45 12/03/20 21:45 12/03/20 21:45 General appearance: no acute distress HEENT: Positive: PERRL Neck: Positive: neck supple Cardiac: Positive: Reg Rate and Rhythm Lungs: Positive: clear to auscultation Neuro: Positive: Grossly Intact Abdomen: Positive: Soft Female genitourinary: deferred Skin: Positive: Clear Extremities: Absent: edema Results 12/04/20 04:47 12/04/20 04:47 Cardiac Enzymes 12/03/20 Range/Units 21:51 AST 41 H (5-40) units/L Coagulation 12/03/20 12/04/20 Range/Units 21:51 04:47 PT 22.4 H 21.0 H (12.2-14.9) Sec. INR 1.97 H 1.82 H (0.87-1.13) APTT 35.8 (24.2-36.6) Sec. Lipids 12/03/20 Range/Units 21:51 Triglycerides 102 (2-149) mg/dL Cholesterol 166 (50-199) mg/dL HDL Cholesterol 45 (40-59) mg/dL Cholesterol/HDL Ratio 3.68 % CBC 12/03/20 12/04/20 Range/Units 21:51 04:47 WBC 5.9 5.8 (4.5-11.0) K/mm3 RBC 5.18 H 4.59 (3.65-5.03) M/mm3 Hgb 10.7 9.6 L (10.1-14.3) gm/dl Hct 35.2 31.2 (30.3-42.9) % Plt Count 266 257 (140-440) K/mm3 Lymph # (Auto) 1.5 1.7 (1.2-5.4) K/mm3 [place] # (Auto) 0.9 H 0.8 (0.0-0.8) K/mm3 Eos # (Auto) 0.1 0.0 (0.0-0.4) K/mm3 Baso # (Auto) 0.0 0.0 (0.0-0.1) K/mm3 Comprehensive Metabolic Panel 12/03/20 12/04/20 Range/Units 21:51 04:47 Sodium 133 L 137 (137-145) mmol/L Potassium 3.9 3.3 L (3.6-5.0) mmol/L Chloride 95.8 L 99.8 (98-107) mmol/L Carbon Dioxide 25 28 (22-30) mmol/L BUN 18 H 16 (7-17) mg/dL Creatinine 0.8 0.7 (0.6-1.2) mg/dL Glucose 88 94 (65-100) mg/dL Calcium 9.2 9.2 (8.4-10.2) mg/dL AST 41 H (5-40) units/L ALT 14 (7-56) units/L Alkaline Phosphatase 68 (35-129) units/L Total Protein 10.1 H (6.3-8.2) g/dL Albumin 3.8 L (3.9-5) g/dL EKG interpretations - Telemetry EKG Rhythm: Sinus Rhythm Assessment and Plan - Patient Problems (1) Chest pain Current Visit: Yes Status: Acute Plan to address problem: Patient's chest pain is atypical, appears musculoskeletal, we will try nonsteroidals for possible costochondritis. (2) Elevated troponin Current Visit: Yes Status: Acute Plan to address problem: Mildly elevated troponin in this clinical setting is likely nonspecific finding. Patient has a known history of dilated nonischemic cardiomyopathy, no evidence of coronary artery disease as reported on a cardiac catheterization at [facility]. (3) Nonischemic cardiomyopathy Current Visit: Yes Status: Acute Plan to address problem: An echocardiogram will be done for left ventricular function assessment, and we will optimize guideline directed medical therapy for chronic systolic left ventricular failure.
--- NOTE | 2020-12-04 15:07 | Discharge Summary ---
Providers - Providers Date of Admission: 12/03/20 23:31 Date of discharge: 12/04/20 Attending physician: KRISTEL SERRANO 12/03/20 Consult to Cardiac Rehabilitation [CONS] Routine Reason For Exam: Phase I 12/03/20 23:46 Consult to Cardiology [CONS] Routine Consulting Provider: MICHELE KHALIL Reason For Exam: Chest Pain Primary care physician: CONFIGURATION ENGINEER Hospitalization Condition: Serious Hospital course: This is a 55-year-old -Malag[place] female with known history of hypertension, rheumatoid arthritis and history of CHF with unknown EF presenting in the emergency room with complaining of chest pain. Chest pain is said to be substernal and radiating towards the left side of her chest and the left upper extremity. She had some tingling sensation in the left upper extremity. Pain is said to be about 6/10 in severity. Pain is worse on exertion and improves upon resting. Patient follows up with a contact representative Dr. Stroud with the [facility]. She indicates that she had a recent stress test about 2 months ago which was within normal limits. She also had a cardiac cath approximately 2 years ago which was also within normal limits. Review of patient's record indicates she was here sometime in 2013 and work-up at that time including echo and cardiac cath were also unremarkable. Work-up in the emergency room today reveals elevated troponin. EKG did not show any acute findings. Patient was admitted for further evaluation and management. Cardiology was consulted, patient was monitored with serial troponin. Cardiology did not recommend any invasive cardiac intervention. Her 2D echocardiogram showed preserved EF. patient chest pain revealed to be musculoskeletal and placed on IV Toradol which resolved her pain. Patient was then discharged home in stable condition with outpatient follow-up. Disposition: - TO HOME OR SELFCARE Final Discharge Diagnosis (Prints w/discharge instructions): Atypical chest pain, rheumatoid arthritis, history of CHF, hypertension Time spent for discharge: 34 minutes Core Measure Documentation - Palliative Care Palliative Care/ Comfort Measures: Not Applicable - Core Measures Any of the following diagnoses?: none Exam - Physical Exam Narrative exam: GENERAL: well-developed and well-nourished lying on bed appeared to be in no discomfort. HEENT: Normocephalic. Atraumatic. No conjunctival congestion or icterus. Patient has moist mucous membranes. NECK: Supple. Trachea midline. CHEST/LUNGS: Clear to auscultated bilaterally, breathing nonlabored. No wheezes crackles or rhonchi. HEART/CARDIOVASCULAR: Regular in rate and rhythm. S1 and S2 positive. ABDOMEN: Abdomen is soft, nontender. Patient has normal bowel sounds. SKIN: There is no rash. Warm and dry. NEURO: No focal motor deficit. Follows command. MUSCULOSKELETAL: No joint effusion or tenderness. EXTRIMITY: No edema, no cyanosis or clubbing. PSYCH: Cooperative. - Constitutional Vitals: Temp Pulse Resp BP Pulse Ox 98.3 F 90 18 149/85 98 12/04/20 11:37 12/04/20 11:37 12/04/20 11:37 12/04/20 11:37 12/04/20 14:00 Plan Activity: advance as tolerated Weight Bearing Status: Weight Bear as Tolerated Diet: low fat, low salt Additional Instructions: Follow-up with contact representative in one week Follow up with: PRIMARY CARE, [Primary Care Provider] - 7 Days Prescriptions: carvediloL [Coreg] 6.25 mg PO BID #60 tablet Aspirin EC [Halfprin EC] 81 mg PO QDAY #30 tablet.
[2020-12-04] MEDS: SPIRONOLACTONE 25 MG TAB PO SCH (18:16)
[2020-12-04] MEDS: carvediloL 6.25 MG TAB PO SCH ×2 (18:16→21:47)
[2020-12-04] MEDS: KETOROLAC 30 MG/1 ML INJ IV SCH ×2 (18:17→21:44)
[2020-12-04] MEDS: LISINOPRIL 5 MG TAB PO SCH (18:18)
[2020-12-05] MEDS: KETOROLAC 30 MG/1 ML INJ IV SCH (05:09)
[2020-12-05] MEDS: NIFEdipine XL 60 MG TAB PO SCH (08:56)
[2020-12-05 10:00] VITALS: BP 123/77
--- NOTE | 2020-12-05 10:31 | Electrocardiograph Report ---
[facility] Test Date: 2020-12-04 Test Time: 10:12:58 Pat Name: OMAYRA FAY Department: Room: A474 1 Gender: F Supervisor Modern Languages: SOTERO : 1965 Requested By: JONATHON REBOLLEDO Order Number: [id number] Reading MD: Wilner Mcmahan Measurements Intervals [place] Rate: 74 P: 63 [place]: 172 QRS: 24 QRSD: 98 T: 88 QT: 414 QTc: 458 Interpretive Statements Sinus rhythm Left atrial enlargement Probable left ventricular hypertrophy Electronically Signed On 12-05-2020 10:31:26 EDT by Wilner Mcmahan
--- NOTE | 2020-12-05 11:02 | Progress Note ---
Assessment and Plan - Patient Problems (1) Chest pain Current Visit: Yes Status: Acute Plan to address problem: Patient's musculoskeletal type chest pain has resolved with intravenous Toradol. Echocardiogram shows normal left ventricular systolic function, ejection fraction 60%, with mild to moderate concentric left ventricle hypertrophy. She looks and feels well, stable for cardiac discharge with outpatient follow-up by her primary early childhood director in 3 to 5 days. Return to the emergency room immediately if any recurrent chest pain. Subjective Date of service: 12/05/20 Interval history: The patient feels much better today, her musculoskeletal type chest pain has completely resolved with intravenous Toradol. Echocardiogram shows normal left ventricular systolic function with ejection fraction 60%. There is mild to moderate concentric left ventricle hypertrophy, which likely represents the cardiomegaly seen on chest x-ray. Objective Vital Signs Temp Pulse Resp BP Pulse Ox 12/05/20 07:59 97.9 F 16 123/77 12/05/20 04:13 98.6 F 67 16 112/68 99 12/05/20 00:00 74 12/04/20 23:35 98.2 F 69 20 115/62 98 12/04/20 22:46 99 12/04/20 21:47 92 H 121/69 12/04/20 21:46 89 97 12/04/20 21:45 98.3 F 91 H 20 121/69 97 12/04/20 19:57 98.6 F 53 L 20 112/63 84 12/04/20 18:17 20 12/04/20 16:00 72 12/04/20 14:00 98 12/04/20 11:37 98.3 F 90 18 149/85 98 - Physical Examination General: Appears Well, No Apparent Distress HEENT: Positive: PERRL Neck: Positive: neck supple Cardiac: Positive: Reg Rate and Rhythm Lungs: Positive: Decreased Breath Sounds Neuro: Positive: Grossly Intact Abdomen: Positive: Soft Skin: Positive: Clear Extremities: Absent: edema
[2020-12-05] MEDS: predniSONE 5 MG TAB PO SCH (11:06)
[2020-12-05] MEDS: ASPIRIN EC 325 MG TAB PO SCH (11:06)
[2020-12-05] MEDS: carvediloL 6.25 MG TAB PO SCH (11:06)
[2020-12-05] MEDS: SPIRONOLACTONE 25 MG TAB PO SCH (11:07)
[2020-12-05] MEDS: FUROSEMIDE 40 MG TAB PO SCH (11:08)
[2020-12-05] MEDS: LISINOPRIL 5 MG TAB PO SCH (11:08)
[2020-12-05] MEDS: HYDROXYCHLOROQUINE 200 MG TAB PO SCH (11:09)
[2020-12-05] MEDS: sulfaSALAzine 500 MG TAB PO SCH (11:26)
--- NOTE | 2020-12-05 13:40 | Event Note ---
Date: 12/05/20 Patient was planned for discharge yesterday but 2D echo resulted after 6 PM and patient did not have a ride to go home Patient was discharged this morning in stable condition with outpatient follow- up and was cleared by general matcher for discharge
--- NOTE | 2020-12-07 14:03 | Electrocardiograph Report ---
[facility] Test Date: 2020-12-03 Test Time: 21:49:32 Pat Name: OMAYRA FAY Department: Room: A474 1 Gender: F Head Well Puller: : 1965 Requested By: ALONZO GUZMAN Order Number: [id number] Reading MD: Miguelangel Solis Measurements Intervals [place] Rate: 68 P: 45 [place]: 160 QRS: 65 QRSD: 97 T: 57 QT: 449 QTc: 476 Interpretive Statements Sinus rhythm Consider left ventricular hypertrophy No previous ECG available for comparison Electronically Signed On 12-07-2020 14:03:08 EDT by Miguelangel Solis
== END 2020-12-05 12:15 | disposition home or self-care (01) ==
LOC: ED 21:30 → 4A 23:31
PROVIDERS: ADMIT Internal Medicine Geriatric Medicine; ATTEND Internal Medicine
DX: I21.4 Non-ST elevation (NSTEMI) myocardial infarction (principal); R07.89 Other chest pain; I11.0 Hypertensive heart disease with heart failure; I50.9 Heart failure, unspecified; R79.81 Abnormal blood-gas level; M06.9 Rheumatoid arthritis, unspecified; I42.8 Other cardiomyopathies; R77.8 Other specified abnormalities of plasma proteins; I73.00 Raynaud's syndrome without gangrene; Z98.51 Tubal ligation status; Z79.82 Long term (current) use of aspirin
CPT/HCPCS: 36415; 71046; 80048; 80053; 80061; 83735; 83880; 84484; 85025; 85610; 85730; 93005; 93306; 96374; 96376; 99291; G0378; J1885; J7512; J2270

== ENCOUNTER 2020-12-28 18:55 | Emergency (ER) | payer MEDICARE ==
--- NOTE | 2020-12-28 20:50 | Emergency Department Report ---
ED General Adult HPI - General Chief complaint: High BP Stated complaint: LIGHT HEADED/BP HIGH Time Seen by Provider: 12/28/20 20:24 Source: patient Mode of arrival: Ambulatory Limitations: No Limitations - History of Present Illness Initial comments: 55-year-old -[place] female presents to the emergency room stating that she was having dizziness and her blood pressure was elevated at her primary care provider. Patient states that her primary care provider had started her on a new blood pressure medication and was sent to the pharmacy. Patient states as she was coming home she started to be lightheaded and pulled over to the side. Patient then eventually came to the emergency room. Patient denies any chest pain no shortness of breathing has been drinking fluids denies any headache. She states now her lightheadedness has improved. Patient does not know what medication was ordered for her. She states she takes her meds about 10 AM.. - Related Data Home Medications Medication Instructions Recorded Confirmed Last Taken Edoxaban Tosylate [Savaysa] 60 mg PO QDAY 11/30/16 11/30/16 11/30/16 Furosemide [Lasix TAB] 40 mg PO QDAY 11/30/16 11/30/16 11/30/16 Hydroxychloroquine [Plaquenil] 200 mg PO QDAY 11/30/16 11/30/16 11/30/16 NIFEdipine [Nifedipine ER] 60 mg PO QDAY 11/30/16 11/30/16 11/30/16 Prednisone [predniSONE (Larry) ER 5 mg PO BID 11/30/16 11/30/16 11/30/16 TAB] lisinopriL [Zestril TAB] 5 mg PO QDAY 11/30/16 11/30/16 11/30/16 sulfaSALAzine [Azulfidine] 500 mg PO Q12HR 11/30/16 11/30/16 11/30/16 Previous Rx's Medication Instructions Recorded Last Taken Type lisinopriL [Zestril TAB] 20 mg PO QDAY #30 tablet 11/30/16 Unknown Rx Aspirin EC [Halfprin EC] 81 mg PO QDAY #30 tablet. 12/04/20 Unknown Rx carvediloL [Coreg] 6.25 mg PO BID #60 tablet 12/04/20 Unknown Rx Allergies Allergy/AdvReac Type Severity Reaction Status Date / Time No Known Allergies Allergy Verified 04/13/15 10:01 ED Review of Systems ROS: Stated complaint: LIGHT HEADED/BP HIGH Other details as noted in HPI ED Past Medical Hx - Past Medical History Previous Medical History?: Yes Hx Hypertension: Yes Hx Congestive Heart Failure: Yes Hx Arthritis: Yes (RA) Hx COPD: Yes Additional medical history: varicose veins, Raynauds - Surgical History Past Surgical History?: Yes Additional Surgical History: tubal litigation - Social History Smoking Status: Never Smoker Substance Use Type: None - Medications Home Medications: Home Medications Medication Instructions Recorded Confirmed Last Taken Type Edoxaban Tosylate [Savaysa] 60 mg PO QDAY 11/30/16 11/30/16 11/30/16 History Furosemide [Lasix TAB] 40 mg PO QDAY 11/30/16 11/30/16 11/30/16 History Hydroxychloroquine [Plaquenil] 200 mg PO QDAY 11/30/16 11/30/16 11/30/16 History NIFEdipine [Nifedipine ER] 60 mg PO QDAY 11/30/16 11/30/16 11/30/16 History Prednisone [predniSONE (Larry) ER 5 mg PO BID 11/30/16 11/30/16 11/30/16 History TAB] lisinopriL [Zestril TAB] 5 mg PO QDAY 11/30/16 11/30/16 11/30/16 History lisinopriL [Zestril TAB] 20 mg PO QDAY #30 tablet 11/30/16 Unknown Rx sulfaSALAzine [Azulfidine] 500 mg PO Q12HR 11/30/16 11/30/16 11/30/16 History Aspirin EC [Halfprin EC] 81 mg PO QDAY #30 tablet. 12/04/20 Unknown Rx carvediloL [Coreg] 6.25 mg PO BID #60 tablet 12/04/20 Unknown Rx ED Physical Exam - General Limitations: No Limitations ED Course Vital Signs 12/28/20 19:27 Temperature 98.2 F Pulse Rate 68 Respiratory 18 Rate Blood Pressure 152/93 O2 Sat by Pulse 99 Oximetry ED Medical Decision Making - Medical Decision Making 55-year-old -[place] female presents to the emergency room stating that she was having dizziness and her blood pressure was elevated at her primary care provider. Patient states that her primary care provider had started her on a new blood pressure medication and was sent to the pharmacy. Patient states as she was coming home she started to be lightheaded and pulled over to the side. Patient then eventually came to the emergency room. Patient denies any chest pain no shortness of breathing has been drinking fluids denies any headache. She states now her lightheadedness has improved. Patient does not know what medication was ordered for her. She states she takes her meds about 10 AM.. Patient reports that her lightheadedness this has improved. Recheck her blood pressure. Patient be discharged home in a stable vital signs. Patient is to follow-up with her primary care provider in 3 to 5 days. Critical care attestation.: If time is entered above; I have spent that time in minutes in the direct care of this critically ill patient, excluding procedure time. ED Disposition Clinical Impression: Hypertension Disposition: [id number] TO HOME OR SELFCARE Is pt being admited?: No Does the pt Need Aspirin: No Condition: Stable Instructions: Hypertension (ED), Hypertension, Adult, [id number], Managing Your Hypertension Additional Instructions: Please increase your fluid intake. Start your new blood pressure medication. Follow-up with your primary care provider in the next 3 to 5 days. Referrals: Your, primary care provider [Other] - 3-5 Days
[2020-12-28 21:39] VITALS: BP 172/99
== END 2020-12-28 21:37 | disposition home or self-care (01) ==
LOC: ED 18:55
DX: I11.0 Hypertensive heart disease with heart failure (principal); I50.9 Heart failure, unspecified; R42 Dizziness and giddiness; M19.91 Primary osteoarthritis, unspecified site; J44.9 Chronic obstructive pulmonary disease, unspecified; Z98.51 Tubal ligation status; Z79.899 Other long term (current) drug therapy
CPT/HCPCS: 99281